=== PATIENT | female | born 1970 | race Caucasian/White ===

== ENCOUNTER 2018-12-28 07:10 | Day surgery (SDC) | payer OTHER ==
[~2018-12-28] VITALS: Ht 165.1 cm; Wt 57.9 kg
[2018-12-28 08:26] VITALS: Ht 165.1 cm; Wt 57.9 kg
[2018-12-28] MEDS ORDERED: LORA-186 PO (08:35)
[2018-12-28 09:23] VITALS: BP 121/81; PULSE 48; RESP 24
[2018-12-28] MEDS ORDERED: FENTAnyl 50 MCG/ML VIAL ONE (10:03)
[2018-12-28] MEDS ORDERED: MIDAZOLAM 1 MG/ML 2 ML INJ ONE ×3 (10:03)
[2018-12-28 10:17] VITALS: BP 119/79; PULSE 72; RESP 18
== END 2018-12-28 11:04 | disposition home or self-care (01) ==
LOC: GIL 07:10
PROVIDERS: ATTEND Internal Medicine Gastroenterology
DX: K92.1 Melena (principal); K64.8 Other hemorrhoids
CPT/HCPCS: 45378; 84703; J2250; J3010; Z7610